=== PATIENT | female | born 1975 | race Caucasian/White ===

== ENCOUNTER 2017-01-11 13:53 | Emergency (ER) | payer MEDICAID ==
[~2017-01-11] VITALS: Ht 157.5 cm; Wt 53.5 kg
[2017-01-11 16:17] LABS: Basophils # (auto) 0 uL; Basophils % (auto) 0.6 % (0.0-2.0); DEFINITIVE VIEW TRANSMISSION; Eosinophils # (auto) 0.8 uL; Eosinophils % (auto) 11.6 % (0.0-7.0); Hematocrit 45.4 % (36.0-46.0); Hemoglobin 14.6 g/dL (12.2-16.2); Lymphocytes # (auto) 2.7 uL; Lymphocytes % (auto) 39.3 % (10.0-50.0); Mean Corpuscular Hemoglobin 30.6 pg (28.0-32.0); Mean Corpuscular Hgb Conc. 32.2 g/dL (32.0-36.0); Mean Corpuscular Volume 94.9 fL (80.0-100.0); Mean Platelet Volume 7.5 fL (7.4-10.4); Monocytes # (auto) 0.5 uL; Monocytes % (auto) 6.9 % (0.0-12.0); Neutrophils # (auto) 2.8 uL; Neutrophils % (auto) 41.6 % (37.0-80.0); Platelet Count (auto) 284 10^3/uL (140-450); Red Cell Distribution Width 12.2 % (11.6-16.0); White Blood Cell 6.9 10^3/uL (4.4-10.8)
[2017-01-11 16:37] LABS: Albumin 4.3 g/dL (3.4-5.0); BUN/Creatinine Ratio 16.3; Calcium 8.8 mg/dL (8.5-10.1); Potassium 4.2 mmol/L (3.5-5.1)
[2017-01-11 16:40] LABS: Bilirubin, Total 0.4 mg/dL (0.2-1.0); Total Protein 7.4 g/dL (6.4-8.2)
[2017-01-11] MEDS ORDERED: KETOROLAC TROMETH 60MG/2ML VIAL IM ONE (19:45)
[2017-01-11 20:06] VITALS: BP 118/63
== END 2017-01-11 20:09 | disposition home or self-care (01) ==
LOC: ER 13:57
DX: S39.012A Strain of muscle, fascia and tendon of lower back, initial encounter (principal); F17.210 Nicotine dependence, cigarettes, uncomplicated; G89.29 Other chronic pain; F12.10 Cannabis abuse, uncomplicated; Z90.710 Acquired absence of both cervix and uterus
CPT/HCPCS: 36415; 80053; 85025; 96372; 99284; J1885

== ENCOUNTER 2018-01-03 10:06 | Emergency (ER) | payer MEDICAID ==
[~2018-01-03] VITALS: Ht 157.5 cm; Wt 46.4 kg
[2018-01-03 10:32] VITALS: BP 120/72
== END 2018-01-03 11:19 | disposition home or self-care (01) ==
LOC: ER 10:06
DX: H66.93 Otitis media, unspecified, bilateral (principal); J18.9 Pneumonia, unspecified organism; J98.11 Atelectasis; F17.210 Nicotine dependence, cigarettes, uncomplicated; F12.10 Cannabis abuse, uncomplicated
CPT/HCPCS: 71046

== ENCOUNTER 2018-01-13 10:07 | Emergency (ER) | payer MEDICAID ==
[~2018-01-13] VITALS: Ht 154.9 cm; Wt 47.2 kg
[2018-01-13 10:22] VITALS: BP 112/79
== END 2018-01-13 11:42 | disposition home or self-care (01) ==
LOC: ER 10:07
DX: J02.9 Acute pharyngitis, unspecified (principal); J45.909 Unspecified asthma, uncomplicated; E07.9 Disorder of thyroid, unspecified; F17.210 Nicotine dependence, cigarettes, uncomplicated; Z90.710 Acquired absence of both cervix and uterus

== ENCOUNTER 2018-05-27 11:53 | Emergency (ER) | payer MEDICAID ==
[~2018-05-27] VITALS: Ht 154.9 cm; Wt 52.6 kg
[2018-05-27 12:26] VITALS: BP 126/92
[2018-05-27] MEDS ORDERED: KETOROLAC TROMETH 60MG/2ML VIAL IM ONE (12:45)
== END 2018-05-27 13:20 | disposition home or self-care (01) ==
LOC: ER 11:53
DX: M51.36 Other intervertebral disc degeneration, lumbar region (principal); G89.29 Other chronic pain; J45.909 Unspecified asthma, uncomplicated; F17.210 Nicotine dependence, cigarettes, uncomplicated; Z90.710 Acquired absence of both cervix and uterus
CPT/HCPCS: 72100; 96372; 99284; J1885

== ENCOUNTER 2018-06-21 17:04 | Emergency (ER) | payer MEDICAID ==
[~2018-06-21] VITALS: Ht 154.9 cm; Wt 54.4 kg
[2018-06-21 22:09] VITALS: BP 116/72
[2018-06-21] MEDS ORDERED: KETOROLAC TROMETH 60MG/2ML VIAL IM ONE (23:00)
== END 2018-06-22 00:06 | disposition home or self-care (01) ==
LOC: ER 17:04
DX: S39.012A Strain of muscle, fascia and tendon of lower back, initial encounter (principal); J45.909 Unspecified asthma, uncomplicated; F17.210 Nicotine dependence, cigarettes, uncomplicated; V43.62XA Car passenger injured in collision with other type car in traffic accident, initial encounter; Y93.89 Activity, other specified; Y92.488 Other paved roadways as the place of occurrence of the external cause; Y99.8 Other external cause status
CPT/HCPCS: 72100; 96372; 99284; J1885

== ENCOUNTER 2019-07-10 19:14 | Emergency (ER) | payer MEDICAID ==
[~2019-07-10] VITALS: Ht 154.9 cm; Wt 59.0 kg
[2019-07-10 19:49] VITALS: BP 125/87
[2019-07-10] MEDS ORDERED: BACLOFEN 10 MG TAB PO ONE (21:15)
[2019-07-10] MEDS ORDERED: LACTULOSE 20Gm/30ML SOLN PO ONE (21:15)
[2019-07-10] MEDS ORDERED: HYDROcodone-ACET 10/325MG TAB PO ONE (21:15)
== END 2019-07-10 21:43 | disposition home or self-care (01) ==
LOC: ER 19:17
DX: M62.838 Other muscle spasm (principal); K59.00 Constipation, unspecified; M54.2 Cervicalgia; R51 Headache; F17.210 Nicotine dependence, cigarettes, uncomplicated; F12.10 Cannabis abuse, uncomplicated; J45.909 Unspecified asthma, uncomplicated; Z90.710 Acquired absence of both cervix and uterus; V49.59XA Passenger injured in collision with other motor vehicles in traffic accident, initial encounter; Y93.89 Activity, other specified; Y99.8 Other external cause status; Y92.410 Unspecified street and highway as the place of occurrence of the external cause
CPT/HCPCS: 72131; 73030

== ENCOUNTER 2021-03-06 14:25 | Emergency (ER) | payer MEDICAID, OTHER ==
[~2021-03-06] VITALS: Ht 157.5 cm; Wt 59.0 kg
[2021-03-06 15:41] VITALS: BP 111/75
[2021-03-06] MEDS ORDERED: IBUPROFEN 800 MG TAB PO ONE (16:00)
== END 2021-03-06 17:28 | disposition home or self-care (01) ==
LOC: ER 14:25
DX: S13.9XXA Sprain of joints and ligaments of unspecified parts of neck, initial encounter (principal); R51.9 Headache, unspecified; M25.512 Pain in left shoulder; M25.552 Pain in left hip; F41.9 Anxiety disorder, unspecified; J45.909 Unspecified asthma, uncomplicated; F17.210 Nicotine dependence, cigarettes, uncomplicated; V89.2XXA Person injured in unspecified motor-vehicle accident, traffic, initial encounter; Y93.I9 Activity, other involving external motion; Y92.488 Other paved roadways as the place of occurrence of the external cause; Y99.8 Other external cause status
CPT/HCPCS: 70450; 72125; 73030; 73502

== ENCOUNTER 2021-08-13 18:41 | Emergency (ER) | payer OTHER, MEDICAID ==
[~2021-08-13] VITALS: Ht 154.9 cm; Wt 61.2 kg
[2021-08-13 18:41] VITALS: BP 136/76
== END 2021-08-13 22:14 | disposition left against medical advice (07) ==
LOC: ER 18:41
DX: M54.5 Low back pain (principal); Z53.21 Procedure and treatment not carried out due to patient leaving prior to being seen by health care provider

== ENCOUNTER → 2024-06-22 | Day surgery (SDC) | payer OTHER, MEDICAID ==
[~2024-06-22] VITALS: Ht 154.9 cm; Wt 56.2 kg
[~2024-06-22] MED LIST: BECL80AE11 IN; BENZ0.5T19 PO; CHOL500046 PO; ESCI1TAB37 PO; FLUT1AER3 IN; HYDROmorphone HCL 2 MG/ML VL/or syr IV PRN; KETAMINE 50mg/ML 1ml syringe ONE; KETOROLAC TROMETH 30 MG/ML 1ML VIAL IV ONE; LIDOCAINE 1% INJ PF 5ML AMP ONE; MEPERIDINE HCL (50 MG/ML) 1 ML VIAL ONE; METOCLOPRAMIDE HCL 5MG/ml INJ 2ml VIAL IV ONE; MIDAZOLAM HCL 2MG/2ML 2ml VIAL (1mg/ml) ONE; MORPHINE SULFATE INJ 2 MG/ml SYRG IV PRN; ONDANSETRON HCL 4 MG/2 ML VIAL ONE; PROPOFOL 10 MG/ML 20 ML IV ONE; QUET50TA5 PO; SODIUM CHLORIDE LOCK 10 ML ONE; SPIR50TA5 PO; TIZA4CAP PO; UMEC1INH IN; ZOLP10TA6 PO; fentaNYL CITRATE 100 MCG/2 ML VL IV PRN; fentaNYL CITRATE 100 MCG/2 ML VL ONE
[2024-06-22] MEDS: CIPROFLOXACIN 400MG/200ML 200 ML IV ONE (11:33)
[2024-06-22 12:01] VITALS: TEMP 99.2; O2SAT 99
[2024-06-22 12:53] VITALS: BP 105/69; PULSE 83; RESP 17; O2SAT 99
== END | disposition home or self-care (01) ==
LOC: SUR 08:25
PROVIDERS: ATTEND Urology
DX: N35.82 Other urethral stricture, female (principal); N34.3 Urethral syndrome, unspecified; J44.9 Chronic obstructive pulmonary disease, unspecified; G89.29 Other chronic pain; N18.2 Chronic kidney disease, stage 2 (mild); E78.5 Hyperlipidemia, unspecified; F31.9 Bipolar disorder, unspecified; F41.9 Anxiety disorder, unspecified; Z98.890 Other specified postprocedural states; Z87.891 Personal history of nicotine dependence; Z98.891 History of uterine scar from previous surgery; Z90.710 Acquired absence of both cervix and uterus; Z79.899 Other long term (current) drug therapy
CPT/HCPCS: 52276; J0744; J2175; J2250; J2405; J2704; J3010